=== PATIENT | female | born 1965 | race Caucasian/White ===

== ENCOUNTER 2021-03-12 11:59 | Day surgery (SDC) | payer OTHER ==
--- NOTE | 2021-03-12 08:52 | HP ---
DATE OF SURGERY: 03/12/2021 HISTORY OF PRESENT ILLNESS: The patient is a 55-year-old who has had right index finger enlarging cyst or nodule increasing in size, increasing aches and pains. PAST MEDICAL HISTORY: Diabetes. PAST SURGICAL HISTORY: Hysterectomy. Cholecystectomy. Ablation in the past. MEDICATIONS: Pramipexole, Invokana, ibuprofen, multivitamin. ALLERGIES: KEFLEX. FAMILY HISTORY: Negative in regards to this problem. SOCIAL HISTORY: Denies alcohol abuse. REVIEW OF SYSTEMS: Fourteen systems reviewed. No chest pain or palpitations. Other systems negative or noncontributory as above and per preadmission questionnaire. PHYSICAL EXAMINATION: GENERAL: No acute distress. HEENT: Sclerae nonicteric. NECK: No JVD. CHEST: Equal excursion, nonlabored breathing. CVS: Regular rate and rhythm. ABDOMEN: Soft. No peritoneal signs. nontender, nondistended. EXTREMITIES: No significant edema. NEURO: Alert, oriented, moving extremities symmetrically. No gross motor deficits noted. RECTAL: Deferred timed to endoscopy exam. PSYCH: Appropriate mood and affect. IMPRESSION: Enlarging right index finger cyst or nodule consistent with mucous cyst, ganglion or other nodule. Given the enlarging size it could also be a rheumatoid arthritis nodule or fibroma. Given the increasing size, aches and pains, I feel the patient will benefit from excisional biopsy. Risks and benefits explained in detail including but not limited to bleeding or infection, risk of aches, pains, burning or numbness but not limited to as well as risk of recurrence of cyst or nodule up to 10% possibly higher if this is a rheumatoid nodule or other type of nodule. General risk of anesthesia, deep venous thrombosis, pulmonary embolism or pneumonia but not limited to. Consent obtained, will proceed with excisional biopsy of right index finger cyst or nodule as an outpatient.
[~2021-03-12 11:59] MED LIST: Lactated Ringers 1,000 ML IV ONE; Sensorcaine 0.25% 10 ML ONE
[2021-03-12] MEDS ORDERED: CLINDAMYCIN-D5W 900 MG/50 ML*** 900 MG/50 ML BAG IV ONE (12:00)
[2021-03-12] MEDS ORDERED: Lactated Ringers 1,000 ML IV ONE (12:28)
[2021-03-12] MEDS ORDERED: Lactated Ringers 1,000 ML IV SCH (12:30)
[2021-03-12] MEDS ORDERED: Transderm Scop 1.5MG Patch TOP PRN (13:47)
[2021-03-12] MEDS ORDERED: SUBLIMAZE 100 MCG/2 ML ONE ×2 (13:48→14:54)
[2021-03-12] MEDS ORDERED: DIPRIVAN 200 MG/20 ML IV ONE (13:49)
[2021-03-12] MEDS ORDERED: Xylocaine-Mpf 2% 5 Ml Vial ONE (13:49)
[2021-03-12] MEDS ORDERED: Quelicin Fliptop 200 MG/10 ML ONE (13:49)
[2021-03-12] MEDS ORDERED: Versed 2 MG/2 ML Injection ONE (13:49)
[2021-03-12] MEDS ORDERED: Pre-Attached Lta Kit TP ONE (13:58)
[2021-03-12] MEDS ORDERED: Ephedrine Sulfate 50 MG/ML ONE (14:11)
[2021-03-12] MEDS ORDERED: Zofran 4 MG/2 ML VIAL ONE (14:25)
[2021-03-12] MEDS ORDERED: TORAdol 30 mg Injection ONE (14:25)
[2021-03-12] MEDS ORDERED: Decadron 4 MG INJ ONE ×2 (14:28)
[2021-03-12] MEDS ORDERED: Triple Antibiotic Ointment ONE (14:29)
[2021-03-12] MEDS ORDERED: Narcan 0.4 MG/ML ONE ×2 (14:32→14:34)
[2021-03-12 16:14] VITALS: BP 123/74; PULSE 72; O2SAT 93
--- NOTE | 2021-03-13 09:08 | OP ---
SURGERY DATE/TIME: 03/12/2021 8939 PREOPERATIVE DIAGNOSIS: Enlarging symptomatic nodule or cyst right index finger. POSTOPERATIVE DIAGNOSIS: Enlarging symptomatic nodule or cyst right index finger. PROCEDURE: Excision of right index finger nodule. SURGEON: Dr. Seymour Salcido. ANESTHESIA: General. ESTIMATED BLOOD LOSS: Minimal. INDICATIONS: As noted above. Risks and benefits explained in detail and not limited to and consent obtained. The site is confirmed and marked in the preoperative holding area. DESCRIPTION OF PROCEDURE AND FINDINGS: She is taken to the operating room. General anesthesia introduced. She is prepped and draped in usual sterile fashion. After official time out and no disagreement with planned procedure, Esmarch was used to exsanguinate the extremity. The tourniquet is turned up to 40. A small sliver of skin overlying the nodule. Dissection carried down through the skin. This seems to be more rather than a mucous-type cyst, it seemed to be more of a firm nodule arising just outside the fascia. It did not appear to be mucinous and go down to the distal interphalangeal joint. It rather seemed to be more superficial and more of a solid nodule carefully dissected off of the underlying fascia. Again, this is in the avascular field with the tourniquet up. The tourniquet was only up for 8 minutes and then released. Scant ooze from the skin itself. The wound is closed with interrupted 4-0 Prolene, some 0.25% Marcaine local was carefully infiltrated at the base of the digit on both sides. The patient will be given a finger splint and sterile dressing. There were no immediate complications. There was no family available when I went out to check the waiting area. I will see if they show up later. Otherwise, I will see her back in the office probably in a couple of weeks. She is to use the splint and avoid excessive bending the finger over the next week. Otherwise, she will be back in the office in a week or two for stitch removal. Path pending.
== END 2021-03-12 16:30 | disposition home or self-care (01) ==
LOC: SDC 11:59
PROVIDERS: ATTEND Surgery
DX: L72.0 Epidermal cyst (principal); E11.9 Type 2 diabetes mellitus without complications; Z79.899 Other long term (current) drug therapy
CPT/HCPCS: 82947; J0330; J1100; J1885; J2250; J2310; J2405; J2704; J3010; A9270-GY